=== PATIENT | male | born 1995 | race African-American/Black ===

== ENCOUNTER 2018-01-06 20:11 | Emergency (ER) | payer BC, MEDICAID ==
[~2018-01-06] VITALS: Ht 182.9 cm; Wt 81.0 kg
[2018-01-06 20:13] VITALS: BP 152/80
== END 2018-01-06 22:13 | disposition left against medical advice (07) ==
LOC: ER 20:57
DX: Z53.21 Procedure and treatment not carried out due to patient leaving prior to being seen by health care provider (principal)

== ENCOUNTER 2018-03-20 20:05 | Emergency (ER) | payer BC, MEDICAID | END 2018-03-20 20:15 | disposition left against medical advice (07) | LOC: ER 20:12 | DX: Z00.8 Encounter for other general examination (principal); Z53.21 Procedure and treatment not carried out due to patient leaving prior to being seen by health care provider ==